=== PATIENT | male | born 1970 | race Two or more races ===

== ENCOUNTER 2021-06-27 17:42 | Emergency (ER) | payer OTHER ==
[~2021-06-27] VITALS: Ht 170.2 cm; Wt 95.3 kg
[2021-06-27 20:27] LABS: Basophils # (auto) 0.1 10 ^3/uL (0-0.2); Basophils % (auto) 1.2 % (0.0-2.0); Eosinophils # (auto) 0.1 10 ^3/uL (0-0.8); Eosinophils % (auto) 1.7 % (0.0-7.0); Hemoglobin 16.2 g/dL (13.5-17.5); Lymphocytes # (auto) 1.9 10 ^3/uL (0.4-5.4); Mean Corpuscular Hemoglobin 30.4 pg (28.0-32.0); Mean Corpuscular Volume 92.3 fL (80.0-100.0); Monocytes # (auto) 0.6 10 ^3/uL (0-1.3); Neutrophils # (auto) 3.7 10 ^3/uL (1.6-8.6); Neutrophils % (auto) 58.1 % (37.0-80.0); Nucleated Red Blood Cells % 0.2 %; Red Blood Cells 5.31 10^6/uL (4.5-5.90); White Blood Cell 6.3 10^3/uL (4.4-10.8)
[2021-06-27 20:52] LABS: Albumin 4.6 g/dL (3.4-5.0); Calcium 9.3 mg/dL (8.5-10.1); Potassium 4.2 mmol/L (3.5-5.1)
[2021-06-27 20:58] LABS: BUN/Creatinine Ratio 8.8; Bilirubin, Total 0.2 mg/dL (0.2-1.0); Total Protein 9.8 g/dL (6.4-8.2)
[2021-06-27 21:33] VITALS: BP 137/98
== END 2021-06-27 21:36 | disposition home or self-care (01) ==
LOC: ER 17:42
DX: R07.89 Other chest pain (principal); F17.210 Nicotine dependence, cigarettes, uncomplicated; F12.10 Cannabis abuse, uncomplicated
CPT/HCPCS: 36415; 71046; 80053; 84484; 85025; 93005

== ENCOUNTER 2021-10-28 10:39 | Inpatient (IN) | payer OTHER ==
[~2021-10-28] VITALS: Ht 170.2 cm; Wt 83.0 kg
[2021-10-28] MEDS ORDERED: ACETAMINOPHEN 325 MG TAB PO ONE (12:15)
[2021-10-28] MEDS ORDERED: ONDANSETRON HCL 4 MG/2 ML VIAL IV ONE (12:45)
[2021-10-28] MEDS ORDERED: fentaNYL CITRATE 100 MCG/2 ML VL IV ONE ×2 (12:45→15:45)
[2021-10-28 13:51] LABS: Basophils # (auto) 0 10 ^3/uL (0-0.2); Basophils % (auto) 0.2 % (0.0-2.0); Eosinophils # (auto) 0 10 ^3/uL (0-0.8); Hematocrit 34.8 % (41.0-53.0); Lymphocytes # (auto) 0.3 10 ^3/uL (0.4-5.4); Lymphocytes % (auto) 3.4 % (10.0-50.0); Mean Corpuscular Hemoglobin 30.4 pg (28.0-32.0); Mean Corpuscular Hgb Conc. 34.4 g/dL (32.0-36.0); Mean Corpuscular Volume 88.2 fL (80.0-100.0); Monocytes # (auto) 0.3 10 ^3/uL (0-1.3); Monocytes % (auto) 3.5 % (0.0-12.0); Neutrophils # (auto) 9.2 10 ^3/uL (1.6-8.6); Neutrophils % (auto) 92.9 % (37.0-80.0); Red Blood Cells 3.94 10^6/uL (4.5-5.90); Red Cell Distribution Width 15.4 % (11.8-14.3); White Blood Cell 9.9 10^3/uL (4.4-10.8)
[2021-10-28 14:28] LABS: Magnesium 1.6 mg/dL (1.6-2.6)
[2021-10-28 14:50] LABS: Calcium 8.7 mg/dL (8.5-10.1); Potassium 3.8 mmol/L (3.5-5.1)
[2021-10-28 14:55] LABS: Albumin 2.9 g/dL (3.4-5.0); BUN/Creatinine Ratio 9.1; Bilirubin, Total 1.2 mg/dL (0.2-1.0); Total Protein 7.2 g/dL (6.4-8.2)
[2021-10-28] MEDS ORDERED: PIPERACILLIN-TAZOB 3.375GM 100 ML IV ONE (15:30)
[2021-10-28] MEDS ORDERED: ACETAMINOPHEN IV 1000 MG/100ML (10MG/ML) IV PRN (15:30)
[2021-10-28] MEDS ORDERED: MORPHINE SULFATE INJECTION 2 MG/ML SYRG IV PRN (17:30)
[2021-10-28] MEDS ORDERED: NITROGLYCERIN 0.4 MG SL TAB SL PRN (17:30)
[2021-10-28] MEDS ORDERED: ONDANSETRON HCL 4 MG/2 ML VIAL IV PRN (17:30)
[2021-10-28] MEDS ORDERED: SODIUM CHLORIDE 0.9% 1,000 ML IV ONE (17:30)
[2021-10-28] MEDS ORDERED: NTG 0.1MG/HR TOPICAL PATCH TD ONE (18:00)
[2021-10-28 18:16] LABS: Cholesterol 105 mg/dL (< 200); HDL Cholesterol 37 mg/dL (40-59); LDL Cholesterol 53 mg/dL (< 100); Triglycerides 73 mg/dL (< 150)
[2021-10-28] MEDS: SODIUM CHLORIDE 0.9% 3,000 ML IV SCH (18:23)
[2021-10-28 20:25] VITALS: BP 121/75
[2021-10-28] MEDS: metroNIDAZOLE 500MG/100ML 100 ML IV SCH (21:25)
[2021-10-28] MEDS: MORPHINE SULFATE 4 MG/ML SYR/VIAL IV PRN (21:27)
[2021-10-28 21:41] VITALS: BP 121/75
[2021-10-29] MEDS: MORPHINE SULFATE 4 MG/ML SYR/VIAL IV PRN ×2 (02:03→06:15)
[2021-10-29 05:00] VITALS: BP 116/66
[2021-10-29 05:24] LABS: Basophils # (auto) 0 10 ^3/uL (0-0.2); Basophils % (auto) 0.2 % (0.0-2.0); Eosinophils # (auto) 0 10 ^3/uL (0-0.8); Eosinophils % (auto) 0.1 % (0.0-7.0); Hematocrit 32.1 % (41.0-53.0); Hemoglobin 10.9 g/dL (13.5-17.5); Lymphocytes # (auto) 0.7 10 ^3/uL (0.4-5.4); Lymphocytes % (auto) 6.7 % (10.0-50.0); Mean Corpuscular Hemoglobin 30.2 pg (28.0-32.0); Mean Corpuscular Volume 88.8 fL (80.0-100.0); Monocytes # (auto) 1.1 10 ^3/uL (0-1.3); Monocytes % (auto) 10.1 % (0.0-12.0); Neutrophils # (auto) 8.8 10 ^3/uL (1.6-8.6); Neutrophils % (auto) 82.9 % (37.0-80.0); Nucleated Red Blood Cells % 0.1 %; Red Blood Cells 3.61 10^6/uL (4.5-5.90); Red Cell Distribution Width 15.7 % (11.8-14.3); White Blood Cell 10.7 10^3/uL (4.4-10.8)
[2021-10-29 05:47] LABS: Potassium 4.4 mmol/L (3.5-5.1)
[2021-10-29 05:53] LABS: Albumin 2.5 g/dL (3.4-5.0); BUN/Creatinine Ratio 12.5; Calcium 8.7 mg/dL (8.5-10.1)
[2021-10-29 05:59] LABS: Bilirubin, Total 1.3 mg/dL (0.2-1.0); Total Protein 6.6 g/dL (6.4-8.2)
[2021-10-29] MEDS: metroNIDAZOLE 500MG/100ML 100 ML IV SCH ×3 (06:08→22:13)
[2021-10-29] MEDS: cefTRIAXone 1GM/50ML D5W 50 ML IV SCH (08:37)
[2021-10-29 08:39] VITALS: BP 107/72
[2021-10-29] MEDS ORDERED: HEPARIN SODIUM (PORCINE) 5000 UNITS/ML 1ML VIAL IV ONE (10:15)
[2021-10-29] MEDS ORDERED: GASTROGRAFIN 120 ML SOL ONE (10:24)
[2021-10-29 10:44] LABS: Basophils # (auto) 0 10 ^3/uL (0-0.2); Basophils % (auto) 0.2 % (0.0-2.0); Eosinophils # (auto) 0 10 ^3/uL (0-0.8); Eosinophils % (auto) 0.1 % (0.0-7.0); Hemoglobin 11.4 g/dL (13.5-17.5); Lymphocytes # (auto) 0.5 10 ^3/uL (0.4-5.4); Lymphocytes % (auto) 4.9 % (10.0-50.0); Mean Corpuscular Hemoglobin 30.5 pg (28.0-32.0); Mean Corpuscular Hgb Conc. 34.4 g/dL (32.0-36.0); Mean Corpuscular Volume 88.6 fL (80.0-100.0); Monocytes # (auto) 0.9 10 ^3/uL (0-1.3); Neutrophils # (auto) 8.5 10 ^3/uL (1.6-8.6); Neutrophils % (auto) 85.8 % (37.0-80.0); Red Blood Cells 3.73 10^6/uL (4.5-5.90); Red Cell Distribution Width 15.7 % (11.8-14.3); White Blood Cell 9.9 10^3/uL (4.4-10.8)
[2021-10-29] MEDS: SODIUM CHLORIDE 0.9% 3,000 ML IV SCH (11:00)
[2021-10-29 11:05] LABS: INR 1.23 (0.9-1.15); Partial Thromboplastin Time 29.4 sec (23.6-33.0)
[2021-10-29] MEDS ORDERED: KETOROLAC TROMETH 30 MG/ML 1ML VIAL IV ONE (11:30)
[2021-10-29 12:36] VITALS: BP 123/85
[2021-10-29] MEDS: HEPARIN DRIP/D5W 100UNITS/ML 250 ML IV SCH (15:00)
[2021-10-29 16:18] VITALS: BP 107/75
[2021-10-29] MEDS ORDERED: SODIUM CHLORIDE 0.9% 1,000 ML IV ONE (17:30)
[2021-10-29 22:00] VITALS: BP 106/78
[2021-10-29 23:44] LABS: INR 1.13 (0.9-1.15); Partial Thromboplastin Time 27.3 sec (23.6-33.0)
[2021-10-29] MEDS ORDERED: HEPARIN SODIUM (PORCINE) 5000 UNITS/ML 1ML VIAL IV STA (23:54)
[2021-10-30 05:00] VITALS: BP 116/75
[2021-10-30] MEDS: metroNIDAZOLE 500MG/100ML 100 ML IV SCH ×3 (05:34→22:11)
[2021-10-30 05:41] LABS: Basophils # (auto) 0 10 ^3/uL (0-0.2); Basophils % (auto) 0.2 % (0.0-2.0); Eosinophils # (auto) 0 10 ^3/uL (0-0.8); Eosinophils % (auto) 0.1 % (0.0-7.0); Hematocrit 29.7 % (41.0-53.0); Lymphocytes # (auto) 0.7 10 ^3/uL (0.4-5.4); Lymphocytes % (auto) 8.2 % (10.0-50.0); Mean Corpuscular Hemoglobin 29.8 pg (28.0-32.0); Mean Corpuscular Hgb Conc. 33.6 g/dL (32.0-36.0); Mean Corpuscular Volume 88.7 fL (80.0-100.0); Monocytes # (auto) 0.9 10 ^3/uL (0-1.3); Monocytes % (auto) 10.7 % (0.0-12.0); Neutrophils # (auto) 6.7 10 ^3/uL (1.6-8.6); Neutrophils % (auto) 80.8 % (37.0-80.0); Nucleated Red Blood Cells % 0.1 %; Red Blood Cells 3.35 10^6/uL (4.5-5.90); Red Cell Distribution Width 15.4 % (11.8-14.3); White Blood Cell 8.3 10^3/uL (4.4-10.8)
[2021-10-30 06:10] LABS: INR 1.14 (0.9-1.15); Partial Thromboplastin Time 49.6 sec (23.6-33.0)
[2021-10-30 09:00] VITALS: BP 109/71
[2021-10-30] MEDS: cefTRIAXone 1GM/50ML D5W 50 ML IV SCH (09:19)
[2021-10-30] MEDS: CARVEDILOL 3.125 MG TAB PO SCH ×2 (12:05→22:12)
[2021-10-30 12:23] LABS: INR 1.1 (0.9-1.15)
[2021-10-30] MEDS: HEPARIN DRIP/D5W 100UNITS/ML 250 ML IV SCH ×2 (12:46→13:39)
[2021-10-30 13:00] VITALS: BP 107/77
[2021-10-30 17:00] VITALS: BP 108/75
[2021-10-30] MEDS: SODIUM CHLORIDE 0.9% 3,000 ML IV SCH (17:42)
[2021-10-30 19:50] LABS: INR 1.1 (0.9-1.15); Partial Thromboplastin Time 38.1 sec (23.6-33.0)
[2021-10-30] MEDS: MORPHINE SULFATE 4 MG/ML SYR/VIAL IV PRN (20:34)
[2021-10-30 22:00] VITALS: BP 103/67
[2021-10-31] VITALS (7 sets, daily range): BP systolic 104–116; BP diastolic 71–80
[2021-10-31 03:29] LABS: INR 1.1 (0.9-1.15); Partial Thromboplastin Time 48.1 sec (23.6-33.0)
[2021-10-31] MEDS: HEPARIN DRIP/D5W 100UNITS/ML 250 ML IV SCH ×2 (03:56→15:05)
[2021-10-31] MEDS: metroNIDAZOLE 500MG/100ML 100 ML IV SCH ×2 (05:58→14:14)
[2021-10-31] MEDS: CARVEDILOL 3.125 MG TAB PO SCH (09:46)
[2021-10-31] MEDS: cefTRIAXone 1GM/50ML D5W 50 ML IV SCH (09:46)
[2021-10-31 10:12] LABS: INR 1.08 (0.9-1.15); Partial Thromboplastin Time 46.9 sec (23.6-33.0)
[2021-10-31] MEDS: SODIUM CHLORIDE 0.9% 3,000 ML IV SCH (13:45)
[2021-10-31 19:01] LABS: Hemoglobin 9.7 g/dL (13.5-17.5); Mean Corpuscular Hemoglobin 29.7 pg (28.0-32.0); Mean Corpuscular Hgb Conc. 33.4 g/dL (32.0-36.0); Mean Corpuscular Volume 88.9 fL (80.0-100.0); Red Blood Cells 3.26 10^6/uL (4.5-5.90); Red Cell Distribution Width 15.7 % (11.8-14.3); White Blood Cell 9.3 10^3/uL (4.4-10.8)
[2021-10-31 19:08] LABS: Basophils % (manual) 0 (0.0-2.0); Blast Cells 0; Metamyelocytes % 0; Myelocytes % 0; Promyelocytes % 0
[2021-10-31 19:17] LABS: Band Neutrophils % (manual) 0; Eosinophils % (manual) 2 (0-7); Lymphocytes % (manual) 19 (10.0-50.0); Monocytes % (manual) 8 (0-12); Reactive Lymphocytes 1
[2021-10-31 19:18] LABS: INR 1.07 (0.9-1.15); Partial Thromboplastin Time < 20.0 sec (23.6-33.0)
[2021-11-01] MEDS: metroNIDAZOLE 500MG/100ML 100 ML IV SCH ×2 (01:25→05:45)
[2021-11-01] MEDS: CARVEDILOL 3.125 MG TAB PO SCH ×3 (01:26→22:13)
[2021-11-01] MEDS: MORPHINE SULFATE 4 MG/ML SYR/VIAL IV PRN ×2 (01:27→22:12)
[2021-11-01 04:56] VITALS: BP 114/75
[2021-11-01 04:56] LABS: Basophils # (auto) 0 10 ^3/uL (0-0.2); Basophils % (auto) 0.5 % (0.0-2.0); Eosinophils # (auto) 0.1 10 ^3/uL (0-0.8); Eosinophils % (auto) 1.9 % (0.0-7.0); Hematocrit 27.9 % (41.0-53.0); Hemoglobin 9.4 g/dL (13.5-17.5); Lymphocytes # (auto) 0.7 10 ^3/uL (0.4-5.4); Lymphocytes % (auto) 13.2 % (10.0-50.0); Mean Corpuscular Hemoglobin 30.1 pg (28.0-32.0); Mean Corpuscular Hgb Conc. 33.6 g/dL (32.0-36.0); Mean Corpuscular Volume 89.4 fL (80.0-100.0); Monocytes # (auto) 0.7 10 ^3/uL (0-1.3); Monocytes % (auto) 13.5 % (0.0-12.0); Neutrophils # (auto) 3.5 10 ^3/uL (1.6-8.6); Neutrophils % (auto) 70.9 % (37.0-80.0); Nucleated Red Blood Cells % 0.1 %; Red Blood Cells 3.12 10^6/uL (4.5-5.90); Red Cell Distribution Width 15.6 % (11.8-14.3)
[2021-11-01 05:22] LABS: Calcium 8.5 mg/dL (8.5-10.1); Potassium 4.3 mmol/L (3.5-5.1)
[2021-11-01 05:26] LABS: Albumin 2.1 g/dL (3.4-5.0); BUN/Creatinine Ratio 20.8; Magnesium 2.1 mg/dL (1.6-2.6)
[2021-11-01 05:38] LABS: Bilirubin, Total 0.5 mg/dL (0.2-1.0); Total Protein 6.4 g/dL (6.4-8.2)
[2021-11-01 09:00] VITALS: BP 121/78
[2021-11-01] MEDS ORDERED: LIDOCAINE 5% TOPICAL PATCH TOP SCH (10:00)
[2021-11-01] MEDS: PANTOPRAZOLE 40 MG/10 ML VIAL INJ IV SCH (11:46)
[2021-11-01] MEDS: cefTRIAXone 1GM/50ML D5W 50 ML IV SCH (11:47)
[2021-11-01 13:00] VITALS: BP 110/56
[2021-11-01] MEDS ORDERED: SODIUM CHLORIDE 0.9% 3,000 ML IV SCH (13:45)
[2021-11-01 17:00] VITALS: BP 114/80
[2021-11-01 17:17] LABS: % Iron Saturation 7.8 % (20-55)
[2021-11-01 22:00] VITALS: BP 117/80
[2021-11-02 05:00] VITALS: BP 109/74
[2021-11-02 05:30] LABS: Hematocrit 28.4 % (41.0-53.0); Hemoglobin 9.7 g/dL (13.5-17.5)
[2021-11-02 09:00] VITALS: BP 128/80
[2021-11-02] MEDS: PANTOPRAZOLE 40 MG/10 ML VIAL INJ IV SCH (09:26)
[2021-11-02] MEDS: CARVEDILOL 3.125 MG TAB PO SCH (09:30)
[2021-11-02] MEDS ORDERED: FER325T PO (11:47)
[2021-11-02 13:00] VITALS: BP 115/76
[2021-11-02 17:00] VITALS: BP 122/83
[2021-11-02 17:23] VITALS: BP 122/83
[2021-11-02] MEDS ORDERED: LIDOCAINE 5% TOPICAL PATCH TOP SCH (22:00)
== END 2021-11-02 18:45 | disposition home health service (06) | DRG 720 ==
LOC: ER 10:39 → TELE-WESTW 17:40
PROVIDERS: ADMIT Registered Nurse; ATTEND Internal Medicine
PROC: 0D9670Z Drainage of Stomach with Drainage Device, Via Natural or Artificial Opening (ICD-10-PCS; principal; 2021-10-28)
DX: A41.9 Sepsis, unspecified organism (principal); I21.4 Non-ST elevation (NSTEMI) myocardial infarction; K56.600 Partial intestinal obstruction, unspecified as to cause; E46 Unspecified protein-calorie malnutrition; N17.9 Acute kidney failure, unspecified; R18.8 Other ascites; E88.09 Other disorders of plasma-protein metabolism, not elsewhere classified; D50.9 Iron deficiency anemia, unspecified; E66.9 Obesity, unspecified; F17.210 Nicotine dependence, cigarettes, uncomplicated; K40.20 Bilateral inguinal hernia, without obstruction or gangrene, not specified as recurrent; Z83.3 Family history of diabetes mellitus; Z68.28 Body mass index [BMI] 28.0-28.9, adult
CPT/HCPCS: 36415; 71045; 74176; 74250; 80053; 80061; 82270; 83036; 83540; 83550; 83605; 83615; 83690; 83735; 83880; 84443; 84484; 85007; 85014; 85018; 85025; 85027; 85610; 85730; 87040; 93005; 93306; 96361; 96365; 96366; 96375; 96376; 97163; 99291; C9113; G0378; J0131; J0696; J1885; J2405; J2543; J3490

== ENCOUNTER 2021-11-05 05:00 | Inpatient (IN) | payer OTHER ==
[~2021-11-05] VITALS: Ht 177.8 cm; Wt 80.4 kg
[2021-11-05] VITALS (36 sets, daily range): BP systolic 82–152; BP diastolic 43–94
[~2021-11-05 05:00] MED LIST: FER325T PO
[2021-11-05] MEDS ORDERED: SODIUM CHLORIDE 0.9% 1,000 ML IV ONE ×2 (06:30→22:15)
[2021-11-05] MEDS ORDERED: MORPHINE SULFATE 4 MG/ML SYR/VIAL IV ONE ×2 (06:30)
[2021-11-05] MEDS ORDERED: ONDANSETRON HCL 4 MG/2 ML VIAL IV ONE ×2 (06:30)
[2021-11-05 06:58] LABS: Albumin 2.5 g/dL (3.4-5.0); Calcium 8.4 mg/dL (8.5-10.1); Potassium 3.7 mmol/L (3.5-5.1)
[2021-11-05 07:01] LABS: Bilirubin, Total 0.5 mg/dL (0.2-1.0); Total Protein 6.7 g/dL (6.4-8.2)
[2021-11-05] MEDS ORDERED: IOHEXOL 300 MG/ML 100ML BOTTLE IJ ONE (07:17)
[2021-11-05] MEDS ORDERED: metroNIDAZOLE 500MG/100ML 100 ML IV ONE (08:45)
[2021-11-05] MEDS ORDERED: cefTRIAXone 1GM/50ML D5W 50 ML IV ONE (08:45)
[2021-11-05] MEDS ORDERED: SODIUM CHLORIDE 0.9% 2,000 ML IV ONE (09:30)
[2021-11-05 09:36] LABS: INR 1.2 (0.9-1.15)
[2021-11-05 09:45] LABS: Basophils # (auto) 0 10 ^3/uL (0-0.2); Basophils % (auto) 0.1 % (0.0-2.0); Eosinophils # (auto) 0 10 ^3/uL (0-0.8); Hematocrit 35.5 % (41.0-53.0); Hemoglobin 11.6 g/dL (13.5-17.5); Lymphocytes # (auto) 0.6 10 ^3/uL (0.4-5.4); Mean Corpuscular Hemoglobin 28.9 pg (28.0-32.0); Mean Corpuscular Hgb Conc. 32.7 g/dL (32.0-36.0); Mean Corpuscular Volume 88.2 fL (80.0-100.0); Monocytes # (auto) 1.1 10 ^3/uL (0-1.3); Monocytes % (auto) 6.5 % (0.0-12.0); Neutrophils # (auto) 14.5 10 ^3/uL (1.6-8.6); Neutrophils % (auto) 89.4 % (37.0-80.0); Red Blood Cells 4.03 10^6/uL (4.5-5.90); Red Cell Distribution Width 16.5 % (11.8-14.3); White Blood Cell 16.2 10^3/uL (4.4-10.8)
[2021-11-05] MEDS ORDERED: SUCCINYLCHOLINE CHLORIDE 20 MG/ML 10ML VIAL IV ONE (10:13)
[2021-11-05] MEDS ORDERED: MIDAZOLAM HCL 2MG/2ML 2ml VIAL (1mg/ml) ONE ×2 (10:14→13:39)
[2021-11-05] MEDS ORDERED: fentaNYL CITRATE 100 MCG/2 ML VL ONE ×3 (10:14→13:54)
[2021-11-05] MEDS ORDERED: ROCURONIUM 10MG/ML 10ML VIAL IV ONE (10:20)
[2021-11-05] MEDS ORDERED: ETOMIDATE (2MG/ML) 20ML VIAL IV ONE (11:57)
[2021-11-05] MEDS ORDERED: HYDROCORTISONE SOD SUCC 100 MG/2ML INJ VIAL ONE (11:57)
[2021-11-05] MEDS ORDERED: ALBUMIN 5% 500 ML IV ONE (12:04)
[2021-11-05] MEDS ORDERED: ALBUMIN 5% 250 ML IV ONE (12:28)
[2021-11-05] MEDS ORDERED: ceFAZolin 1GM VL ONE (13:38)
[2021-11-05] MEDS ORDERED: PROPOFOL 100 ML IV ONE (14:15)
[2021-11-05] MEDS ORDERED: HYDROmorphone HCL 2 MG/ML VL/or syr IV PRN ×2 (14:45)
[2021-11-05] MEDS: PANTOPRAZOLE 40 MG/10 ML VIAL INJ IV SCH (16:00)
[2021-11-05] MEDS: LACTATED RINGER'S 1,000 ML IV SCH ×2 (16:00→17:57)
[2021-11-05] MEDS: metroNIDAZOLE 500MG/100ML 100 ML IV SCH ×2 (16:00→21:39)
[2021-11-05] MEDS: fentaNYL Drip 2500mCg/250mlNS 250 ML IV SCH (17:30)
[2021-11-05] MEDS: PROPOFOL 100 ML IV SCH (17:56)
[2021-11-05] MEDS: MIDAZOLAM DRIP 50 mg/50mL 50 ML IV SCH (19:30)
[2021-11-05] MEDS: NOREPINEPHRINE 8 MG/250ML KIT 250 ML IV SCH (20:26)
[2021-11-06] VITALS (102 sets, daily range): BP systolic 77–124; BP diastolic 43–103
[2021-11-06] MEDS: PROPOFOL 100 ML IV SCH ×5 (00:40→22:53)
[2021-11-06] MEDS: LACTATED RINGER'S 1,000 ML IV SCH ×2 (03:49→14:04)
[2021-11-06 03:53] LABS: Basophils # (auto) 0 10 ^3/uL (0-0.2); Basophils % (auto) 0.1 % (0.0-2.0); Eosinophils # (auto) 0 10 ^3/uL (0-0.8); Hemoglobin 9.2 g/dL (13.5-17.5); Lymphocytes # (auto) 1.4 10 ^3/uL (0.4-5.4); Lymphocytes % (auto) 5.5 % (10.0-50.0); Mean Corpuscular Hemoglobin 28.3 pg (28.0-32.0); Mean Corpuscular Volume 85.6 fL (80.0-100.0); Monocytes # (auto) 2.5 10 ^3/uL (0-1.3); Monocytes % (auto) 9.7 % (0.0-12.0); Neutrophils # (auto) 22.1 10 ^3/uL (1.6-8.6); Neutrophils % (auto) 84.7 % (37.0-80.0); Red Blood Cells 3.27 10^6/uL (4.5-5.90); Red Cell Distribution Width 19.7 % (11.8-14.3); White Blood Cell 26.1 10^3/uL (4.4-10.8)
[2021-11-06 04:09] LABS: Albumin 2.7 g/dL (3.4-5.0); BUN/Creatinine Ratio 12.8; Calcium 7.3 mg/dL (8.5-10.1); Potassium 4.3 mmol/L (3.5-5.1)
[2021-11-06 04:12] LABS: Bilirubin, Total 1.6 mg/dL (0.2-1.0); Total Protein 5.2 g/dL (6.4-8.2)
[2021-11-06] MEDS: NOREPINEPHRINE 8 MG/250ML KIT 250 ML IV SCH (05:04)
[2021-11-06] MEDS: metroNIDAZOLE 500MG/100ML 100 ML IV SCH ×3 (05:52→21:41)
[2021-11-06] MEDS: fentaNYL Drip 2500mCg/250mlNS 250 ML IV SCH ×2 (06:55→21:39)
[2021-11-06] MEDS: cefTRIAXone 1GM/50ML D5W 50 ML IV SCH (08:52)
[2021-11-06] MEDS ORDERED: SODIUM CHLORIDE 0.9% 500 ML IV ONE (10:30)
[2021-11-06] MEDS: PANTOPRAZOLE 40 MG/10 ML VIAL INJ IV SCH (10:30)
[2021-11-06] MEDS ORDERED: ALBUMIN 25% 100 ML IV ONE ×2 (12:00)
[2021-11-06] MEDS: MIDAZOLAM DRIP 50 mg/50mL 50 ML IV SCH (19:30)
[2021-11-07] VITALS (99 sets, daily range): BP systolic 91–126; BP diastolic 53–80
[2021-11-07] MEDS: LACTATED RINGER'S 1,000 ML IV SCH (00:16)
[2021-11-07] MEDS: NOREPINEPHRINE 8 MG/250ML KIT 250 ML IV SCH (01:53)
[2021-11-07] MEDS: metroNIDAZOLE 500MG/100ML 100 ML IV SCH ×3 (06:10→21:45)
[2021-11-07] MEDS: PROPOFOL 100 ML IV SCH (06:12)
[2021-11-07 06:47] LABS: Albumin 2.1 g/dL (3.4-5.0); Calcium 7.6 mg/dL (8.5-10.1); Potassium 3.8 mmol/L (3.5-5.1)
[2021-11-07 06:50] LABS: BUN/Creatinine Ratio 11.5; Bilirubin, Total 1.1 mg/dL (0.2-1.0); Total Protein 4.8 g/dL (6.4-8.2)
[2021-11-07] MEDS: cefTRIAXone 1GM/50ML D5W 50 ML IV SCH (09:55)
[2021-11-07] MEDS: PANTOPRAZOLE 40 MG/10 ML VIAL INJ IV SCH (09:55)
[2021-11-07] MEDS ORDERED: TPN PER PHARMACY 0 ML IV SCH (10:30)
[2021-11-07 10:42] LABS: Magnesium 1.4 mg/dL (1.6-2.6)
[2021-11-07 10:49] LABS: Basophils # (auto) 0.1 10 ^3/uL (0-0.2); Eosinophils # (auto) 0.1 10 ^3/uL (0-0.8); Hemoglobin 7.6 g/dL (13.5-17.5); Nucleated Red Blood Cells % 0.1 %; Red Blood Cells 2.71 10^6/uL (4.5-5.90)
[2021-11-07 10:51] LABS: Basophils % (auto) 0.6 % (0.0-2.0); Eosinophils % (auto) 0.6 % (0.0-7.0); Hematocrit 23.3 % (41.0-53.0); Mean Corpuscular Hemoglobin 28.2 pg (28.0-32.0); Mean Corpuscular Hgb Conc. 32.8 g/dL (32.0-36.0); Monocytes # (auto) 1.4 10 ^3/uL (0-1.3); Monocytes % (auto) 6.9 % (0.0-12.0); Neutrophils # (auto) 17.3 10 ^3/uL (1.6-8.6); Neutrophils % (auto) 86.9 % (37.0-80.0); White Blood Cell 19.9 10^3/uL (4.4-10.8)
[2021-11-07] MEDS ORDERED: SODIUM PHOSPHATES 40 MEQ in D5W 5% 250 ML IV ONE (11:45)
[2021-11-07] MEDS: MAGNESIUM SULFATE 1GM/100ML 100 ML IV SCH ×3 (12:08→16:53)
[2021-11-07] MEDS: SOD CHL 0.45% 1,000 ML IV SCH ×2 (13:48→18:30)
[2021-11-07] MEDS: ONDANSETRON HCL 4 MG/2 ML VIAL IV PRN (16:56)
[2021-11-07] MEDS: MIDAZOLAM DRIP 50 mg/50mL 50 ML IV SCH (19:30)
[2021-11-07] MEDS ORDERED: TPN PER PHARMACY IV NR ×6 (20:00)
[2021-11-07] MEDS: ACCU-CHEK COMFORT CURVE STRIP VI SCH (23:52)
[2021-11-07] MEDS: InsuLIN REG 1unit/0.01ml Soln (100units/ml) SC SCH (23:52)
[2021-11-08] VITALS (40 sets, daily range): BP systolic 98–132; BP diastolic 64–82
[2021-11-08] MEDS ORDERED: DEXTROSE (50%) 50ML SYRG IV SCH
[2021-11-08] MEDS: ONDANSETRON HCL 4 MG/2 ML VIAL IV PRN ×2 (00:51→15:42)
[2021-11-08] MEDS: SOD CHL 0.45% 1,000 ML IV SCH ×2 (02:30→09:19)
[2021-11-08 04:48] LABS: Potassium 3.4 mmol/L (3.5-5.1)
[2021-11-08 04:56] LABS: BUN/Creatinine Ratio 12.9; Bilirubin, Total 1.2 mg/dL (0.2-1.0); Calcium 7.8 mg/dL (8.5-10.1); Magnesium 2.2 mg/dL (1.6-2.6); Phosphorus 2.1 mg/dL (2.5-4.90); Total Protein 5.2 g/dL (6.4-8.2)
[2021-11-08] MEDS: metroNIDAZOLE 500MG/100ML 100 ML IV SCH ×3 (05:31→21:49)
[2021-11-08] MEDS: InsuLIN REG 1unit/0.01ml Soln (100units/ml) SC SCH ×4 (05:31→23:51)
[2021-11-08] MEDS: ACCU-CHEK COMFORT CURVE STRIP VI SCH ×4 (05:46→23:50)
[2021-11-08 08:26] LABS: Eosinophils # (auto) 0.1 10 ^3/uL (0-0.8); Mean Corpuscular Hemoglobin 27.9 pg (28.0-32.0); Mean Corpuscular Hgb Conc. 32.7 g/dL (32.0-36.0); Mean Corpuscular Volume 85.2 fL (80.0-100.0); Nucleated Red Blood Cells % 0.1 %
[2021-11-08 08:29] LABS: Basophils # (auto) 0 10 ^3/uL (0-0.2); Basophils % (auto) 0.3 % (0.0-2.0); Hematocrit 20.9 % (41.0-53.0); Lymphocytes # (auto) 0.7 10 ^3/uL (0.4-5.4); Lymphocytes % (auto) 6.1 % (10.0-50.0); Monocytes # (auto) 0.9 10 ^3/uL (0-1.3); Monocytes % (auto) 7.7 % (0.0-12.0); Neutrophils # (auto) 10.2 10 ^3/uL (1.6-8.6); Neutrophils % (auto) 84.9 % (37.0-80.0); Red Blood Cells 2.45 10^6/uL (4.5-5.90); Red Cell Distribution Width 19.1 % (11.8-14.3)
[2021-11-08 08:33] LABS: Hemoglobin 6.8 g/dL (13.5-17.5)
[2021-11-08] MEDS: PANTOPRAZOLE 40 MG/10 ML VIAL INJ IV SCH ×2 (09:18→21:49)
[2021-11-08] MEDS: cefTRIAXone 1GM/50ML D5W 50 ML IV SCH (09:18)
[2021-11-08] MEDS ORDERED: POTASSIUM PHOSPHATE 44 MEQ in D5W 5% 250 ML IV ONE (10:00)
[2021-11-08] MEDS: MORPHINE SULFATE INJECTION 2 MG/ML SYRG IV PRN ×2 (11:31→18:08)
[2021-11-08] MEDS ORDERED: FUROSEMIDE 40 MG/4 ML VIAL IV ONE (12:30)
[2021-11-08] MEDS ORDERED: PHENYLEPHRINE INJ 80 MG in SODIUM CHL 0.9% 242 ML IV SCH (14:30)
[2021-11-08 15:48] LABS: Hemoglobin 8.3 g/dL (13.5-17.5)
[2021-11-08] MEDS ORDERED: TPN PER PHARMACY IV NR ×7 (20:00)
[2021-11-09] VITALS (15 sets, daily range): BP systolic 106–128; BP diastolic 61–80
[2021-11-09] MEDS: MORPHINE SULFATE INJECTION 2 MG/ML SYRG IV PRN ×5 (03:30→21:42)
[2021-11-09] MEDS: ONDANSETRON HCL 4 MG/2 ML VIAL IV PRN ×3 (03:30→21:43)
[2021-11-09] MEDS: InsuLIN REG 1unit/0.01ml Soln (100units/ml) SC SCH ×3 (04:47→17:29)
[2021-11-09] MEDS: metroNIDAZOLE 500MG/100ML 100 ML IV SCH ×3 (04:47→21:43)
[2021-11-09] MEDS: ACCU-CHEK COMFORT CURVE STRIP VI SCH ×3 (04:47→17:29)
[2021-11-09 05:14] LABS: Basophils # (auto) 0 10 ^3/uL (0-0.2); Lymphocytes # (auto) 0.7 10 ^3/uL (0.4-5.4)
[2021-11-09 05:15] LABS: Basophils % (auto) 0.2 % (0.0-2.0); Eosinophils # (auto) 0.1 10 ^3/uL (0-0.8); Eosinophils % (auto) 1.3 % (0.0-7.0); Hematocrit 23.8 % (41.0-53.0); Hemoglobin 8.2 g/dL (13.5-17.5); Lymphocytes % (auto) 6.8 % (10.0-50.0); Mean Corpuscular Hemoglobin 28.9 pg (28.0-32.0); Mean Corpuscular Hgb Conc. 34.4 g/dL (32.0-36.0); Mean Corpuscular Volume 83.9 fL (80.0-100.0); Monocytes % (auto) 10.1 % (0.0-12.0); Neutrophils # (auto) 8.1 10 ^3/uL (1.6-8.6); Neutrophils % (auto) 81.6 % (37.0-80.0); Nucleated Red Blood Cells % 0.1 %; Red Blood Cells 2.84 10^6/uL (4.5-5.90); Red Cell Distribution Width 17.9 % (11.8-14.3); White Blood Cell 9.9 10^3/uL (4.4-10.8)
[2021-11-09 05:41] LABS: Calcium 7.7 mg/dL (8.5-10.1); Magnesium 1.8 mg/dL (1.6-2.6); Potassium 3.1 mmol/L (3.5-5.1)
[2021-11-09 05:43] LABS: BUN/Creatinine Ratio 12.8
[2021-11-09 05:45] LABS: Phosphorus 1.8 mg/dL (2.5-4.90); Total Protein 5.5 g/dL (6.4-8.2)
[2021-11-09 07:55] LABS: % Iron Saturation 9.7 % (20-55)
[2021-11-09] MEDS ORDERED: POTASSIUM PHOSPHATE 44 MEQ in D5W 5% 250 ML IV ONE (08:30)
[2021-11-09] MEDS: PANTOPRAZOLE 40 MG/10 ML VIAL INJ IV SCH ×2 (09:20→22:09)
[2021-11-09] MEDS: cefTRIAXone 1GM/50ML D5W 50 ML IV SCH (09:20)
[2021-11-09] MEDS ORDERED: FUROSEMIDE 20 MG/2 ML VIAL IV ONE (10:15)
[2021-11-09] MEDS ORDERED: HEPARIN SODIUM (PORCINE) 5000 UNITS/ML 1ML VIAL IV ONE (13:30)
[2021-11-09 14:30] LABS: INR 1.08 (0.9-1.15); Partial Thromboplastin Time 26.2 sec (23.6-33.0)
[2021-11-09] MEDS: HEPARIN DRIP/D5W 100UNITS/ML 250 ML IV SCH (14:45)
[2021-11-09] MEDS ORDERED: TPN PER PHARMACY IV NR ×8 (20:00)
[2021-11-09 21:56] LABS: INR 1.11 (0.9-1.15); Partial Thromboplastin Time 35.6 sec (23.6-33.0)
[2021-11-09 22:13] LABS: Basophils # (auto) 0 10 ^3/uL (0-0.2); Basophils % (auto) 0.5 % (0.0-2.0); Eosinophils # (auto) 0.2 10 ^3/uL (0-0.8); Eosinophils % (auto) 2.1 % (0.0-7.0); Hemoglobin 7.9 g/dL (13.5-17.5); Monocytes # (auto) 1.2 10 ^3/uL (0-1.3); Neutrophils # (auto) 6.4 10 ^3/uL (1.6-8.6)
[2021-11-09 22:14] LABS: Hematocrit 23.1 % (41.0-53.0); Lymphocytes # (auto) 0.9 10 ^3/uL (0.4-5.4); Lymphocytes % (auto) 10.8 % (10.0-50.0); Mean Corpuscular Hemoglobin 28.4 pg (28.0-32.0); Mean Corpuscular Hgb Conc. 34.2 g/dL (32.0-36.0); Monocytes % (auto) 13.5 % (0.0-12.0); Neutrophils % (auto) 73.1 % (37.0-80.0); Nucleated Red Blood Cells % 0.2 %; Red Blood Cells 2.78 10^6/uL (4.5-5.90); Red Cell Distribution Width 18.3 % (11.8-14.3); White Blood Cell 8.7 10^3/uL (4.4-10.8)
[2021-11-10] VITALS (21 sets, daily range): BP systolic 98–130; BP diastolic 62–82
[2021-11-10] MEDS: HEPARIN DRIP/D5W 100UNITS/ML 250 ML IV SCH ×4 (00:49→20:17)
[2021-11-10] MEDS: ACCU-CHEK COMFORT CURVE STRIP VI SCH ×4 (00:49→18:20)
[2021-11-10] MEDS: InsuLIN REG 1unit/0.01ml Soln (100units/ml) SC SCH ×4 (01:02→18:00)
[2021-11-10] MEDS: ONDANSETRON HCL 4 MG/2 ML VIAL IV PRN ×5 (01:47→20:44)
[2021-11-10] MEDS: MORPHINE SULFATE INJECTION 2 MG/ML SYRG IV PRN ×5 (01:48→20:44)
[2021-11-10 05:16] LABS: Basophils # (auto) 0 10 ^3/uL (0-0.2); Eosinophils # (auto) 0.2 10 ^3/uL (0-0.8); Eosinophils % (auto) 2.2 % (0.0-7.0); Neutrophils # (auto) 6.5 10 ^3/uL (1.6-8.6); Nucleated Red Blood Cells % 0.1 %
[2021-11-10 05:21] LABS: Basophils % (auto) 0.4 % (0.0-2.0); Hematocrit 22.6 % (41.0-53.0); Hemoglobin 7.9 g/dL (13.5-17.5); Lymphocytes % (auto) 11.4 % (10.0-50.0); Mean Corpuscular Hemoglobin 29.3 pg (28.0-32.0); Mean Corpuscular Hgb Conc. 34.7 g/dL (32.0-36.0); Mean Corpuscular Volume 84.5 fL (80.0-100.0); Monocytes # (auto) 1.3 10 ^3/uL (0-1.3); Red Blood Cells 2.68 10^6/uL (4.5-5.90); Red Cell Distribution Width 18.4 % (11.8-14.3)
[2021-11-10 05:24] LABS: INR 1.1 (0.9-1.15); Partial Thromboplastin Time 40.6 sec (23.6-33.0)
[2021-11-10 05:27] LABS: Albumin 1.9 g/dL (3.4-5.0); Calcium 7.7 mg/dL (8.5-10.1); Magnesium 2.2 mg/dL (1.6-2.6); Potassium 3.1 mmol/L (3.5-5.1)
[2021-11-10 05:31] LABS: BUN/Creatinine Ratio 18.3; Bilirubin, Total 0.9 mg/dL (0.2-1.0); Phosphorus 2.4 mg/dL (2.5-4.90); Total Protein 5.5 g/dL (6.4-8.2)
[2021-11-10] MEDS: metroNIDAZOLE 500MG/100ML 100 ML IV SCH ×3 (06:07→21:30)
[2021-11-10] MEDS: cefTRIAXone 1GM/50ML D5W 50 ML IV SCH (09:22)
[2021-11-10] MEDS: PANTOPRAZOLE 40 MG/10 ML VIAL INJ IV SCH ×2 (09:22→21:30)
[2021-11-10] MEDS ORDERED: POTASSIUM PHOSPHATE 44 MEQ in D5W 5% 250 ML IV ONE (09:45)
[2021-11-10] MEDS ORDERED: SODIUM FERR GLUC 62.5MG/5ML 125 MG in SODIUM CHL 0.9% 100 ML IV ONE (13:45)
[2021-11-10 16:48] LABS: INR 1.1 (0.9-1.15); Partial Thromboplastin Time 53.5 sec (23.6-33.0)
[2021-11-10] MEDS ORDERED: TPN PER PHARMACY IV NR ×8 (20:00)
[2021-11-10 22:36] LABS: INR 1.17 (0.9-1.15); Partial Thromboplastin Time 47.8 sec (23.6-33.0)
[2021-11-11] VITALS (17 sets, daily range): BP systolic 92–124; BP diastolic 54–81
[2021-11-11] MEDS: InsuLIN REG 1unit/0.01ml Soln (100units/ml) SC SCH ×4 (00:30→18:00)
[2021-11-11] MEDS: ACCU-CHEK COMFORT CURVE STRIP VI SCH ×4 (00:44→18:00)
[2021-11-11] MEDS: ONDANSETRON HCL 4 MG/2 ML VIAL IV PRN ×4 (03:32→21:29)
[2021-11-11] MEDS: MORPHINE SULFATE INJECTION 2 MG/ML SYRG IV PRN ×3 (03:32→21:29)
[2021-11-11 05:15] LABS: Albumin 1.9 g/dL (3.4-5.0); Calcium 7.6 mg/dL (8.5-10.1); Magnesium 2.2 mg/dL (1.6-2.6); Potassium 3.5 mmol/L (3.5-5.1)
[2021-11-11 05:19] LABS: BUN/Creatinine Ratio 19.5; Bilirubin, Total 0.7 mg/dL (0.2-1.0); INR 1.17 (0.9-1.15); Phosphorus 2.5 mg/dL (2.5-4.90); Total Protein 5.6 g/dL (6.4-8.2)
[2021-11-11 05:24] LABS: Partial Thromboplastin Time 77.9 sec (23.6-33.0)
[2021-11-11] MEDS: metroNIDAZOLE 500MG/100ML 100 ML IV SCH ×3 (05:39→21:27)
[2021-11-11] MEDS: HEPARIN DRIP/D5W 100UNITS/ML 250 ML IV SCH (06:32)
[2021-11-11 08:49] LABS: Basophils # (auto) 0 10 ^3/uL (0-0.2); Hemoglobin 7.6 g/dL (13.5-17.5); Lymphocytes # (auto) 0.8 10 ^3/uL (0.4-5.4); Neutrophils # (auto) 6.7 10 ^3/uL (1.6-8.6)
[2021-11-11 08:50] LABS: Basophils % (auto) 0.5 % (0.0-2.0); Eosinophils # (auto) 0.3 10 ^3/uL (0-0.8); Eosinophils % (auto) 2.9 % (0.0-7.0); Hematocrit 22.3 % (41.0-53.0); Lymphocytes % (auto) 9.2 % (10.0-50.0); Mean Corpuscular Hemoglobin 28.8 pg (28.0-32.0); Mean Corpuscular Hgb Conc. 33.9 g/dL (32.0-36.0); Mean Corpuscular Volume 84.7 fL (80.0-100.0); Monocytes % (auto) 11.7 % (0.0-12.0); Neutrophils % (auto) 75.7 % (37.0-80.0); Nucleated Red Blood Cells % 0.2 %; Red Blood Cells 2.63 10^6/uL (4.5-5.90); Red Cell Distribution Width 18.2 % (11.8-14.3); White Blood Cell 8.8 10^3/uL (4.4-10.8)
[2021-11-11] MEDS: cefTRIAXone 1GM/50ML D5W 50 ML IV SCH (09:17)
[2021-11-11] MEDS: PANTOPRAZOLE 40 MG/10 ML VIAL INJ IV SCH ×2 (09:55→21:27)
[2021-11-11 11:25] LABS: INR 1.16 (0.9-1.15); Partial Thromboplastin Time 49.3 sec (23.6-33.0)
[2021-11-11] MEDS ORDERED: levoFLOXacin 750MG 150 ML IV ONE (12:15)
[2021-11-11] MEDS: SODIUM FERR GLUC 62.5MG/5ML 125 MG in SODIUM CHL 0.9% 100 ML IV SCH (12:26)
[2021-11-11] MEDS ORDERED: POTASSIUM PHOSPHATE 22 MEQ in SODIUM CHL 0.9% 100 ML IV ONE (12:30)
[2021-11-11] MEDS ORDERED: ENOXAPARIN SOD 100 MG/1 ML SYRINGE SC ONE ×2 (13:00→15:00)
[2021-11-11] MEDS ORDERED: IOHEXOL 350 MG/ML 100ML IJ ONE (15:44)
[2021-11-11] MEDS ORDERED: TPN PER PHARMACY IV NR ×9 (20:00)
[2021-11-11] MEDS: ENOXAPARIN SOD 100 MG/1 ML SYRINGE SC SCH (21:27)
[2021-11-12] VITALS (12 sets, daily range): BP systolic 96–110; BP diastolic 60–76
[2021-11-12] MEDS: MORPHINE SULFATE INJECTION 2 MG/ML SYRG IV PRN ×3 (05:53→14:59)
[2021-11-12] MEDS: ONDANSETRON HCL 4 MG/2 ML VIAL IV PRN (05:53)
[2021-11-12] MEDS: InsuLIN REG 1unit/0.01ml Soln (100units/ml) SC SCH ×3 (06:00→12:00)
[2021-11-12] MEDS: ACCU-CHEK COMFORT CURVE STRIP VI SCH ×3 (06:17→12:17)
[2021-11-12] MEDS: metroNIDAZOLE 500MG/100ML 100 ML IV SCH ×2 (06:22→13:44)
[2021-11-12 06:29] LABS: Basophils # (auto) 0.1 10 ^3/uL (0-0.2); Basophils % (auto) 1.2 % (0.0-2.0); Eosinophils # (auto) 0.2 10 ^3/uL (0-0.8); Eosinophils % (auto) 2.4 % (0.0-7.0); Hematocrit 23.5 % (41.0-53.0); Hemoglobin 7.8 g/dL (13.5-17.5); Lymphocytes # (auto) 0.9 10 ^3/uL (0.4-5.4); Lymphocytes % (auto) 9.4 % (10.0-50.0); Mean Corpuscular Hemoglobin 28.1 pg (28.0-32.0); Mean Corpuscular Hgb Conc. 33.3 g/dL (32.0-36.0); Mean Corpuscular Volume 84.4 fL (80.0-100.0); Monocytes # (auto) 1.3 10 ^3/uL (0-1.3); Monocytes % (auto) 14.2 % (0.0-12.0); Neutrophils # (auto) 6.6 10 ^3/uL (1.6-8.6); Neutrophils % (auto) 72.8 % (37.0-80.0); Nucleated Red Blood Cells % 0.1 %; Red Blood Cells 2.79 10^6/uL (4.5-5.90); Red Cell Distribution Width 18.9 % (11.8-14.3); White Blood Cell 9.1 10^3/uL (4.4-10.8)
[2021-11-12] MEDS: PANTOPRAZOLE 40 MG/10 ML VIAL INJ IV SCH (09:30)
[2021-11-12] MEDS: ENOXAPARIN SOD 100 MG/1 ML SYRINGE SC SCH ×2 (09:31→22:00)
[2021-11-12] MEDS: levoFLOXacin 750MG 150 ML IV SCH (09:32)
[2021-11-12 09:56] LABS: Magnesium 2.6 mg/dL (1.6-2.6); Potassium 4.2 mmol/L (3.5-5.1)
[2021-11-12 10:00] LABS: BUN/Creatinine Ratio 21.4; Bilirubin, Total 0.6 mg/dL (0.2-1.0); Phosphorus 2.8 mg/dL (2.5-4.90); Total Protein 5.7 g/dL (6.4-8.2)
[2021-11-12] MEDS: SODIUM FERR GLUC 62.5MG/5ML 125 MG in SODIUM CHL 0.9% 100 ML IV SCH (12:17)
[2021-11-12] MEDS ORDERED: IOHEXOL 350 MG/ML 100ML IJ ONE (13:07)
[2021-11-12 16:23] LABS: Hematocrit 23.3 % (41.0-53.0); Hemoglobin 7.8 g/dL (13.5-17.5)
[2021-11-12 16:55] LABS: INR 1.25 (0.9-1.15)
[2021-11-12] MEDS ORDERED: SODIUM CHLORIDE IV NR ×8 (20:00)
[2021-11-12] MEDS ORDERED: SODIUM PHOSPHATES IV NR ×8 (20:00)
[2021-11-12] MEDS ORDERED: FAT EMULSION IV NR ×8 (20:00)
[2021-11-12] MEDS ORDERED: [UNRECOGNIZED DRUG - OTHER] IV NR ×8 (20:00)
[2021-11-12 23:19] LABS: Hematocrit 25.8 % (41.0-53.0); Hemoglobin 8.7 g/dL (13.5-17.5)
[2021-11-13] MEDS: MORPHINE SULFATE INJECTION 2 MG/ML SYRG IV PRN (00:14)
[2021-11-13] MEDS: PANTOPRAZOLE 40 MG/10 ML VIAL INJ IV SCH ×2 (01:50→09:39)
[2021-11-13] MEDS: metroNIDAZOLE 500MG/100ML 100 ML IV SCH ×3 (01:51→15:15)
[2021-11-13] MEDS: ACCU-CHEK COMFORT CURVE STRIP VI SCH ×5 (02:06→18:08)
[2021-11-13 03:15] LABS: INR 1.2 (0.9-1.15)
[2021-11-13 05:19] VITALS: BP 107/73
[2021-11-13] MEDS: InsuLIN REG 1unit/0.01ml Soln (100units/ml) SC SCH ×4 (06:44→18:00)
[2021-11-13 07:15] LABS: Eosinophils # (auto) 0.2 10 ^3/uL (0-0.8); Hematocrit 23.7 % (41.0-53.0); Lymphocytes # (auto) 0.7 10 ^3/uL (0.4-5.4); Monocytes # (auto) 1.1 10 ^3/uL (0-1.3); White Blood Cell 8.4 10^3/uL (4.4-10.8)
[2021-11-13 07:19] LABS: Basophils # (auto) 0 10 ^3/uL (0-0.2); Basophils % (auto) 0.6 % (0.0-2.0); Lymphocytes % (auto) 8.7 % (10.0-50.0); Mean Corpuscular Hemoglobin 28.6 pg (28.0-32.0); Mean Corpuscular Hgb Conc. 33.6 g/dL (32.0-36.0); Monocytes % (auto) 13.6 % (0.0-12.0); Neutrophils # (auto) 6.3 10 ^3/uL (1.6-8.6); Neutrophils % (auto) 75.1 % (37.0-80.0); Nucleated Red Blood Cells % 0.2 %; Red Blood Cells 2.78 10^6/uL (4.5-5.90); Red Cell Distribution Width 18.7 % (11.8-14.3)
[2021-11-13 08:00] LABS: Calcium 8.1 mg/dL (8.5-10.1); Magnesium 2.3 mg/dL (1.6-2.6); Potassium 4.2 mmol/L (3.5-5.1)
[2021-11-13 08:03] LABS: BUN/Creatinine Ratio 20.5; Bilirubin, Total 0.5 mg/dL (0.2-1.0); Phosphorus 2.7 mg/dL (2.5-4.90); Total Protein 5.9 g/dL (6.4-8.2)
[2021-11-13 09:00] VITALS: BP 109/78
[2021-11-13] MEDS: levoFLOXacin 750MG 150 ML IV SCH (09:38)
[2021-11-13] MEDS: ENOXAPARIN SOD 100 MG/1 ML SYRINGE SC SCH (09:38)
[2021-11-13] MEDS: SODIUM FERR GLUC 62.5MG/5ML 125 MG in SODIUM CHL 0.9% 100 ML IV SCH (12:00)
[2021-11-13 14:00] VITALS: BP 122/80
[2021-11-13 15:09] LABS: Hemoglobin 8.1 g/dL (13.5-17.5)
[2021-11-13 15:11] LABS: Hematocrit 24.3 % (41.0-53.0)
[2021-11-13 17:00] VITALS: BP 130/91
[2021-11-13] MEDS ORDERED: TPN PER PHARMACY IV NR ×9 (20:00)
[2021-11-13 22:00] VITALS: BP 124/91
[2021-11-14] MEDS: ACCU-CHEK COMFORT CURVE STRIP VI SCH ×5 (00:08→23:53)
[2021-11-14] MEDS: InsuLIN REG 1unit/0.01ml Soln (100units/ml) SC SCH ×5 (00:09→23:53)
[2021-11-14] MEDS: PANTOPRAZOLE 40 MG/10 ML VIAL INJ IV SCH ×3 (00:10→22:09)
[2021-11-14] MEDS: metroNIDAZOLE 500MG/100ML 100 ML IV SCH ×2 (00:10→06:05)
[2021-11-14] MEDS: ENOXAPARIN SOD 100 MG/1 ML SYRINGE SC SCH ×3 (00:12→22:09)
[2021-11-14 05:00] VITALS: BP 111/72
[2021-11-14 06:32] LABS: Calcium 7.9 mg/dL (8.5-10.1); Potassium 3.9 mmol/L (3.5-5.1)
[2021-11-14 06:36] LABS: BUN/Creatinine Ratio 18.4; Magnesium 2.1 mg/dL (1.6-2.6)
[2021-11-14 06:38] LABS: Bilirubin, Total 0.5 mg/dL (0.2-1.0); Phosphorus 3.5 mg/dL (2.5-4.90); Total Protein 5.8 g/dL (6.4-8.2)
[2021-11-14 08:00] VITALS: BP 116/74
[2021-11-14] MEDS: levoFLOXacin 750MG 150 ML IV SCH (10:28)
[2021-11-14] MEDS ORDERED: FUROSEMIDE 20 MG/2 ML VIAL IV ONE (10:45)
[2021-11-14 12:00] VITALS: BP 112/70
[2021-11-14] MEDS: SODIUM FERR GLUC 62.5MG/5ML 125 MG in SODIUM CHL 0.9% 100 ML IV SCH (12:00)
[2021-11-14] MEDS ORDERED: GASTROGRAFIN 120 ML SOL ONE (14:52)
[2021-11-14 16:00] VITALS: BP 111/75
[2021-11-14] MEDS ORDERED: TPN PER PHARMACY IV NR ×8 (20:00)
[2021-11-14 22:00] VITALS: BP 105/75
[2021-11-15 05:00] VITALS: BP 103/64
[2021-11-15 05:39] LABS: Basophils # (auto) 0.1 10 ^3/uL (0-0.2); Basophils % (auto) 0.8 % (0.0-2.0); Eosinophils # (auto) 0.2 10 ^3/uL (0-0.8); Eosinophils % (auto) 2.6 % (0.0-7.0); Hematocrit 24.9 % (41.0-53.0); Hemoglobin 8.2 g/dL (13.5-17.5); Lymphocytes # (auto) 1.1 10 ^3/uL (0.4-5.4); Mean Corpuscular Hemoglobin 28.5 pg (28.0-32.0); Mean Corpuscular Hgb Conc. 33.1 g/dL (32.0-36.0); Mean Corpuscular Volume 86.2 fL (80.0-100.0); Monocytes % (auto) 11.4 % (0.0-12.0); Neutrophils # (auto) 6.2 10 ^3/uL (1.6-8.6); Neutrophils % (auto) 72.2 % (37.0-80.0); Red Blood Cells 2.88 10^6/uL (4.5-5.90); White Blood Cell 8.6 10^3/uL (4.4-10.8)
[2021-11-15 05:54] LABS: Potassium 3.8 mmol/L (3.5-5.1)
[2021-11-15] MEDS: InsuLIN REG 1unit/0.01ml Soln (100units/ml) SC SCH ×4 (06:00→23:52)
[2021-11-15 06:03] LABS: Albumin 2.2 g/dL (3.4-5.0); BUN/Creatinine Ratio 22.6; Bilirubin, Total 0.4 mg/dL (0.2-1.0); Calcium 8.3 mg/dL (8.5-10.1); Magnesium 2.2 mg/dL (1.6-2.6); Phosphorus 3.6 mg/dL (2.5-4.90); Total Protein 6.1 g/dL (6.4-8.2)
[2021-11-15] MEDS: ACCU-CHEK COMFORT CURVE STRIP VI SCH ×4 (06:03→23:50)
[2021-11-15 09:00] VITALS: BP 109/66
[2021-11-15] MEDS: FUROSEMIDE 20 MG/2 ML VIAL IV SCH (10:22)
[2021-11-15] MEDS: ENOXAPARIN SOD 100 MG/1 ML SYRINGE SC SCH ×2 (10:22→21:56)
[2021-11-15] MEDS: PANTOPRAZOLE 40 MG/10 ML VIAL INJ IV SCH ×2 (10:22→21:56)
[2021-11-15] MEDS: levoFLOXacin 750MG 150 ML IV SCH (10:25)
[2021-11-15 13:00] VITALS: BP 114/64
[2021-11-15] MEDS: SODIUM FERR GLUC 62.5MG/5ML 125 MG in SODIUM CHL 0.9% 100 ML IV SCH (14:00)
[2021-11-15 17:00] VITALS: BP 111/67
[2021-11-15] MEDS ORDERED: TPN PER PHARMACY IV NR ×9 (20:00)
[2021-11-15 22:00] VITALS: BP 108/74
[2021-11-16] VITALS (7 sets, daily range): BP systolic 100–111; BP diastolic 62–73
[2021-11-16] MEDS: InsuLIN REG 1unit/0.01ml Soln (100units/ml) SC SCH ×3 (05:58→18:00)
[2021-11-16] MEDS: ACCU-CHEK COMFORT CURVE STRIP VI SCH ×3 (05:58→18:10)
[2021-11-16 06:06] LABS: Basophils # (auto) 0.1 10 ^3/uL (0-0.2); Eosinophils # (auto) 0.2 10 ^3/uL (0-0.8); Hemoglobin 8.1 g/dL (13.5-17.5); Lymphocytes # (auto) 1.1 10 ^3/uL (0.4-5.4); Monocytes # (auto) 0.7 10 ^3/uL (0-1.3); Nucleated Red Blood Cells % 0.1 %; White Blood Cell 7.5 10^3/uL (4.4-10.8)
[2021-11-16 06:09] LABS: Basophils % (auto) 0.8 % (0.0-2.0); Eosinophils % (auto) 2.7 % (0.0-7.0); Hematocrit 24.2 % (41.0-53.0); Lymphocytes % (auto) 14.7 % (10.0-50.0); Mean Corpuscular Hgb Conc. 33.3 g/dL (32.0-36.0); Mean Corpuscular Volume 87.2 fL (80.0-100.0); Monocytes % (auto) 9.7 % (0.0-12.0); Neutrophils # (auto) 5.4 10 ^3/uL (1.6-8.6); Neutrophils % (auto) 72.1 % (37.0-80.0); Red Blood Cells 2.78 10^6/uL (4.5-5.90); Red Cell Distribution Width 19.6 % (11.8-14.3)
[2021-11-16 06:23] LABS: Calcium 8.2 mg/dL (8.5-10.1); Potassium 3.6 mmol/L (3.5-5.1)
[2021-11-16 06:29] LABS: Albumin 2.3 g/dL (3.4-5.0); BUN/Creatinine Ratio 27.8; Bilirubin, Total 0.3 mg/dL (0.2-1.0); Magnesium 2.6 mg/dL (1.6-2.6); Phosphorus 3.5 mg/dL (2.5-4.90); Pre Albumin 18.5 mg/dL (20.0-40.0); Total Protein 6.2 g/dL (6.4-8.2)
[2021-11-16] MEDS: FUROSEMIDE 20 MG/2 ML VIAL IV SCH (11:03)
[2021-11-16] MEDS: ENOXAPARIN SOD 100 MG/1 ML SYRINGE SC SCH ×2 (11:04→20:51)
[2021-11-16] MEDS: PANTOPRAZOLE 40 MG/10 ML VIAL INJ IV SCH ×2 (11:04→20:51)
[2021-11-16] MEDS: levoFLOXacin 750MG 150 ML IV SCH (11:17)
[2021-11-16] MEDS: SODIUM FERR GLUC 62.5MG/5ML 125 MG in SODIUM CHL 0.9% 100 ML IV SCH (12:30)
[2021-11-16] MEDS ORDERED: TPN PER PHARMACY IV NR ×9 (20:00)
[2021-11-17] MEDS: ACCU-CHEK COMFORT CURVE STRIP VI SCH ×2 (00:08→06:19)
[2021-11-17 05:00] VITALS: BP 105/63
[2021-11-17] MEDS: InsuLIN REG 1unit/0.01ml Soln (100units/ml) SC SCH ×2 (06:00)
[2021-11-17 08:00] VITALS: BP 114/76
[2021-11-17 09:01] VITALS: BP 114/76
[2021-11-17] MEDS ORDERED: HYDROcodone-ACET 5/325MG TAB PO PRN (09:15)
[2021-11-17 09:16] LABS: Alanine Aminotransferase 28 U/L (16-61); Albumin 2.9 g/dL (3.4-5.0); Anion Gap 11 (5-15); Aspartate Aminotransferase 47 U/L (15-37); BUN/Creatinine Ratio 25.3; Blood Urea Nitrogen 22 mg/dL (7-18); Calcium 8.6 mg/dL (8.5-10.1); Carbon Dioxide 21 mmol/L (21-32); Chloride 104 mmol/L (98-107); GFR African American 119 mL/min; GFR Non-African American 98 mL/min; Glucose 95 mg/dL (74-106); Magnesium 2.5 mg/dL (1.6-2.6); Potassium 4.3 mmol/L (3.5-5.1); Sodium 136 mmol/L (136-145)
[2021-11-17 09:19] LABS: Alkaline Phosphatase 177 U/L (45-117); Bilirubin, Total 0.5 mg/dL (0.2-1.0); Phosphorus 3.8 mg/dL (2.5-4.90); Total Protein 7.3 g/dL (6.4-8.2)
[2021-11-17 09:27] LABS: Basophils # (auto) 0.1 10 ^3/uL (0-0.2); Eosinophils # (auto) 0.2 10 ^3/uL (0-0.8); Eosinophils % (auto) 3.2 % (0.0-7.0); Hematocrit 30.2 % (41.0-53.0); Hemoglobin 9.9 g/dL (13.5-17.5); Lymphocytes % (auto) 13.2 % (10.0-50.0); Mean Corpuscular Hemoglobin 28.9 pg (28.0-32.0); Mean Corpuscular Hgb Conc. 32.9 g/dL (32.0-36.0); Mean Corpuscular Volume 87.9 fL (80.0-100.0); Monocytes # (auto) 0.6 10 ^3/uL (0-1.3); Monocytes % (auto) 8.6 % (0.0-12.0); Neutrophils # (auto) 5.6 10 ^3/uL (1.6-8.6); Nucleated Red Blood Cells % 0.2 %; Red Blood Cells 3.44 10^6/uL (4.5-5.90); Red Cell Distribution Width 21.4 % (11.8-14.3); White Blood Cell 7.5 10^3/uL (4.4-10.8)
[2021-11-17] MEDS: levoFLOXacin 750MG 150 ML IV SCH (10:00)
[2021-11-17] MEDS: APIXABAN 5 MG TAB PO SCH ×2 (11:42→21:08)
[2021-11-17] MEDS: PANTOPRAZOLE 40 MG TAB PO SCH (11:42)
[2021-11-17] MEDS: Ensure HIGH Protein Chocolate 8oz Bottle PO SCH ×2 (12:00→18:24)
[2021-11-17 13:00] VITALS: BP 104/66
[2021-11-17 20:00] VITALS: BP 114/76
[2021-11-17] MEDS ORDERED: TPN PER PHARMACY IV NR ×10 (20:00)
[2021-11-17 23:28] VITALS: BP 98/65
[2021-11-18 05:23] VITALS: BP 99/68
[2021-11-18 08:00] VITALS: BP 105/70
[2021-11-18] MEDS: Ensure HIGH Protein Chocolate 8oz Bottle PO SCH ×3 (08:00→17:30)
[2021-11-18 09:00] VITALS: BP 100/70
[2021-11-18] MEDS ORDERED: DOCU-94 PO (09:03)
[2021-11-18] MEDS ORDERED: APIX5TAB PO (09:03)
[2021-11-18] MEDS ORDERED: HYDR1TAB97 PO (09:03)
[2021-11-18] MEDS ORDERED: PANT40T PO (09:03)
[2021-11-18 09:33] LABS: Basophils # (auto) 0.1 10 ^3/uL (0-0.2); Eosinophils # (auto) 0.2 10 ^3/uL (0-0.8); Hemoglobin 9.5 g/dL (13.5-17.5); Nucleated Red Blood Cells % 0.1 %
[2021-11-18 09:34] LABS: Basophils % (auto) 0.7 % (0.0-2.0); Hematocrit 29.7 % (41.0-53.0); Lymphocytes % (auto) 14.3 % (10.0-50.0); Mean Corpuscular Hemoglobin 28.5 pg (28.0-32.0); Mean Corpuscular Hgb Conc. 32.2 g/dL (32.0-36.0); Mean Corpuscular Volume 88.7 fL (80.0-100.0); Monocytes # (auto) 0.6 10 ^3/uL (0-1.3); Monocytes % (auto) 9.1 % (0.0-12.0); Neutrophils % (auto) 72.9 % (37.0-80.0); Red Blood Cells 3.35 10^6/uL (4.5-5.90); Red Cell Distribution Width 21.6 % (11.8-14.3); White Blood Cell 6.9 10^3/uL (4.4-10.8)
[2021-11-18 10:27] LABS: Albumin 2.8 g/dL (3.4-5.0); BUN/Creatinine Ratio 21.8; Calcium 8.7 mg/dL (8.5-10.1); Magnesium 2.2 mg/dL (1.6-2.6); Potassium 4.1 mmol/L (3.5-5.1)
[2021-11-18 10:29] LABS: Bilirubin, Total 0.4 mg/dL (0.2-1.0); Phosphorus 3.3 mg/dL (2.5-4.90); Total Protein 7.4 g/dL (6.4-8.2)
[2021-11-18] MEDS: PANTOPRAZOLE 40 MG TAB PO SCH (11:05)
[2021-11-18] MEDS: levoFLOXacin 750MG 150 ML IV SCH (11:05)
[2021-11-18] MEDS: APIXABAN 5 MG TAB PO SCH (11:05)
[2021-11-18 13:20] VITALS: BP 129/75
[2021-11-18 16:56] VITALS: BP 116/81
[2021-11-24] MEDS ORDERED: APIXABAN 5 MG TAB PO SCH (10:00)
== END 2021-11-18 17:15 | disposition home or self-care (01) | DRG 710 ==
LOC: EDBD 05:00 → ER 05:00 → TELE 07:57 → ICU WEST 16:02 → DOU IN ICU 11-08 19:18 → TELE-EAST 11-12 14:15 → EAST 11-15 20:38
PROVIDERS: ADMIT Registered Nurse; ATTEND Internal Medicine
PROC: 0D1 Gastrointestinal System, Bypass (ICD-10-PCS; 2021-11-05)
PROC: 0DB80ZZ Excision of Small Intestine, Open Approach (ICD-10-PCS; 2021-11-05)
PROC: 5A1945Z Respiratory Ventilation, 24-96 Consecutive Hours (ICD-10-PCS; 2021-11-05)
PROC: 30233N1 Transfusion of Nonautologous Red Blood Cells into Peripheral Vein, Percutaneous Approach (ICD-10-PCS; 2021-11-05)
PROC: 0BH17EZ Insertion of Endotracheal Airway into Trachea, Via Natural or Artificial Opening (ICD-10-PCS; 2021-11-05)
PROC: 02HV33Z Insertion of Infusion Device into Superior Vena Cava, Percutaneous Approach (ICD-10-PCS; principal; 2021-11-06)
DX: A41.9 Sepsis, unspecified organism (principal); R65.21 Severe sepsis with septic shock; J96.01 Acute respiratory failure with hypoxia; K63.1 Perforation of intestine (nontraumatic); K65.0 Generalized (acute) peritonitis; K65.1 Peritoneal abscess; N17.9 Acute kidney failure, unspecified; D63.8 Anemia in other chronic diseases classified elsewhere; E88.09 Other disorders of plasma-protein metabolism, not elsewhere classified; E43 Unspecified severe protein-calorie malnutrition; J18.9 Pneumonia, unspecified organism; N18.1 Chronic kidney disease, stage 1; Z93.3 Colostomy status; F41.9 Anxiety disorder, unspecified; I82.403 Acute embolism and thrombosis of unspecified deep veins of lower extremity, bilateral; J98.11 Atelectasis; J90 Pleural effusion, not elsewhere classified; K40.30 Unilateral inguinal hernia, with obstruction, without gangrene, not specified as recurrent
CPT/HCPCS: 36415; 36600; 71045; 71275; 74177; 74248; 80053; 82040; 82805; 82962; 83540; 83550; 83605; 83690; 83735; 83880; 84100; 84478; 84484; 85014; 85018; 85025; 85610; 85730; 86850; 86900; 86901; 86920; 87040; 87070; 87075; 87077; 87081; 87186; 87205; 93005; 93970; 94002; 94003; 96361; 96365; 96367; 96375; 97110; 97116; 97163; 97530; 99291; C9113; G0378; J0330; J0690; J0696; J1815; J1956; J2250; J2405; J2704; J3490; J7060; J7131; P9047

== ENCOUNTER 2022-07-30 16:36 | Emergency (ER) | payer MEDICAID, OTHER ==
[~2022-07-30] VITALS: Ht 170.2 cm; Wt 91.5 kg
[~2022-07-30 16:36] MED LIST changes: +APIX5TAB PO; +DOCU-94 PO; +HYDR1TAB97 PO; +PANT40T PO
[2022-07-30 19:05] VITALS: BP 118/75
[2022-07-30] MEDS ORDERED: IBUP800T27 PO (19:22)
[2022-07-30] MEDS ORDERED: CEPH-510 PO (19:22)
== END 2022-07-30 21:32 | disposition home or self-care (01) ==
LOC: ER 16:36
DX: S61.215A Laceration without foreign body of left ring finger without damage to nail, initial encounter (principal); S61.217A Laceration without foreign body of left little finger without damage to nail, initial encounter; W26.0XXA Contact with knife, initial encounter; Y93.89 Activity, other specified; Y92.89 Other specified places as the place of occurrence of the external cause; Y99.8 Other external cause status
CPT/HCPCS: 12002

== ENCOUNTER 2022-12-04 08:58 | Emergency (ER) | payer MEDICAID ==
[~2022-12-04] VITALS: Ht 170.2 cm; Wt 91.2 kg
[~2022-12-04 08:58] MED LIST changes: +CEPH-510 PO; +IBUP800T27 PO
[2022-12-04 09:04] VITALS: BP 132/92
[2022-12-04] MEDS ORDERED: METH4PAK PO (09:42)
== END 2022-12-04 09:51 | disposition home or self-care (01) ==
LOC: ER 08:58
DX: G51.0 Bell's palsy (principal); E78.5 Hyperlipidemia, unspecified; I10 Essential (primary) hypertension; Z87.891 Personal history of nicotine dependence
CPT/HCPCS: 70450

== ENCOUNTER → 2024-09-17 | Outpatient (CLI) | payer MEDICAID ==
[~2024-09-17] MED LIST changes: +IBUP-1456 PO; -IBUP800T27 PO; +METH4PAK PO
[2024-09-17 12:20] LABS: Basophils # (auto) 0.1 10 ^3/uL (0-0.2); Basophils % (auto) 0.8 % (0.0-2.0); Eosinophils # (auto) 0.3 10 ^3/uL (0-0.8); Eosinophils % (auto) 4.5 % (0.0-7.0); Hematocrit 42.7 % (41.0-53.0); Hemoglobin 14.3 g/dL (13.5-17.5); Lymphocytes # (auto) 1.6 10 ^3/uL (0.4-5.4); Lymphocytes % (auto) 25.2 % (10.0-50.0); Mean Corpuscular Hemoglobin 31.4 pg (28.0-32.0); Mean Corpuscular Hgb Conc. 33.4 g/dL (32.0-36.0); Mean Corpuscular Volume 93.9 fL (80.0-100.0); Monocytes # (auto) 0.6 10 ^3/uL (0-1.3); Monocytes % (auto) 8.9 % (0.0-12.0); Neutrophils # (auto) 3.8 10 ^3/uL (1.6-8.6); Neutrophils % (auto) 60.6 % (37.0-80.0); Nucleated Red Blood Cells % 0.1 %; Platelet Count (auto) 178 10^3/uL (140-450); Red Blood Cells 4.55 10^6/uL (4.5-5.90); Red Cell Distribution Width 14.6 % (11.8-14.3); White Blood Cell 6.2 10^3/uL (4.4-10.8)
[2024-09-17 12:52] LABS: Prostate Specific Antigen 0.38 ng/mL (0.0-4.0)
[2024-09-17 12:54] LABS: Alanine Aminotransferase 27 U/L (7-40); Alkaline Phosphatase 101 U/L (46-116); Anion Gap 9 (5-15); Aspartate Aminotransferase 24 U/L (13-40); BUN/Creatinine Ratio 10.4 (10.0-20.0); Bilirubin, Total 0.7 mg/dL (0.2-1.0); Blood Urea Nitrogen 11 mg/dL (9-23); Calcium 9.9 mg/dL (8.7-10.4); Carbon Dioxide 25 mmol/L (20-31); Chloride 105 mmol/L (98-107); Glucose 92 mg/dL (74-106); HDL Cholesterol 44 mg/dL (40-59); Potassium 3.9 mmol/L (3.5-5.1); Sodium 139 mmol/L (136-145)
[2024-09-17 12:55] LABS: Cholesterol 205 mg/dL (< 200); LDL Cholesterol 116 mg/dL (< 100); Total Protein 7.8 g/dL (5.7-8.2); Triglycerides 193 mg/dL (< 150)
[2024-09-17 12:58] LABS: Ferritin 392.3 ng/mL (22-322)
[2024-09-18 10:15] LABS: Hepatitis B Core Total AB Negative (Negative)
[2024-09-18 11:57] LABS: Hepatitis A Total Antibody Positive (Negative)
[2024-09-18 11:58] LABS: Hepatitis B Surface Antibody Negative (Negative); Hepatitis B Surface Antigen Negative (Negative); Hepatitis C Antibody Negative (Negative)
== END | disposition home or self-care (01) ==
LOC: LAB 11:08
PROVIDERS: ATTEND Licensed Practical Nurse
DX: Z13.6 Encounter for screening for cardiovascular disorders (principal); Z13.1 Encounter for screening for diabetes mellitus; Z13.220 Encounter for screening for lipoid disorders; I10 Essential (primary) hypertension; E55.9 Vitamin D deficiency, unspecified; D64.9 Anemia, unspecified
CPT/HCPCS: 36415; 80053; 80061; 82306; 82607; 82728; 83036; 83540; 83550; 84153; 84443; 85025; 86703; 86704; 86706; 86708; 86803; 87340

== ENCOUNTER → 2024-09-25 | Outpatient (CLI) | payer MEDICAID | END | disposition home or self-care (01) | LOC: LAB 08:51 | PROVIDERS: ATTEND Licensed Practical Nurse | DX: Z13.6 Encounter for screening for cardiovascular disorders (principal); Z13.1 Encounter for screening for diabetes mellitus; Z13.220 Encounter for screening for lipoid disorders; I10 Essential (primary) hypertension; E55.9 Vitamin D deficiency, unspecified; D64.9 Anemia, unspecified | CPT/HCPCS: 82274 ==

== ENCOUNTER → 2025-03-13 | Day surgery (SDC) | payer MEDICAID ==
[2025-03-10 12:41] LABS: Hematocrit 42.4 % (41.0-53.0); Hemoglobin 14.6 g/dL (13.5-17.5); Mean Corpuscular Hemoglobin 32.4 pg (28.0-32.0); Mean Corpuscular Volume 94.1 fL (80.0-100.0); Nucleated Red Blood Cells % 0.1 %
[2025-03-10 12:52] LABS: Urine Protein, UAD Negative (Negative)
[2025-03-10 12:57] LABS: INR 1.0 (0.9-1.15); Partial Thromboplastin Time 26.7 SEC (24.5-34.5); Prothrombin Time 10.6 sec (9.3-11.8)
[2025-03-10 13:22] LABS: BUN/Creatinine Ratio 5.3 (10.0-20.0)
[2025-03-10 13:23] LABS: Total Protein 7.6 g/dL (5.7-8.2)
[2025-03-10 13:24] LABS: Bilirubin, Total 0.6 mg/dL (0.2-1.0)
[2025-03-10 13:25] LABS: Alanine Aminotransferase 38 U/L (7-40); Albumin 5.0 g/dL (3.2-4.8); Alkaline Phosphatase 88 U/L (46-116); Anion Gap 11 (5-15); Blood Urea Nitrogen 7 mg/dL (9-23); Calcium 9.5 mg/dL (8.7-10.4); Carbon Dioxide 21 mmol/L (20-31); Chloride 108 mmol/L (98-107); Glucose 99 mg/dL (74-106); Potassium 4.1 mmol/L (3.5-5.1); Sodium 140 mmol/L (136-145)
[~2025-03-13] VITALS: Ht 170.2 cm; Wt 93.0 kg
[~2025-03-13] MED LIST changes: +KETAMINE 50mg/ML 1ml syringe ONE; +LIDOCAINE 2% (LOCAL ANESTH.) PF 5ml SDV ONE; +MIDAZOLAM HCL 2MG/2ML 2ml VIAL (1mg/ml) ONE; +PROPOFOL 10 MG/ML 20 ML IV ONE
[2025-03-13 11:13] VITALS: PULSE 74; RESP 18; TEMP 97.2; O2SAT 98
[2025-03-13 11:43] VITALS: BP 122/77; PULSE 67; RESP 17; O2SAT 95
--- NOTE | 2025-03-13 11:49 | DVHOP2 ---
Operative Report DATE OF OPERATION: 03/13/25 PROCEDURE: Colonoscopy with hot snare polypectomy. PREOPERATIVE INDICATION: The patient is a 54 -year-old male undergoing colonoscopy for colon cancer screening with stool Hemoccult is positive POSTOPERATIVE DIAGNOSES: 1. 1 cm benign-appearing polyp was seen on a short stalk in the sigmoid colon at 30 cm above the anal verge and removed completely via hot snare polypectomy 2. There were two less than 5 mm benign-appearing diminutive descending colon polyps that were seen and removed by cold snare polypectomy 3. There was a 1-2 mm benign-appearing transverse colon polyp that was seen and removed by cold biopsy forceps 4. Mild sigmoid diverticular disease 5. Trace to 1+ internal hemorrhoids otherwise normal examination up to the cecum and terminal ileum PROCEDURE PERFORMED BY: Helen Morel M.D. SCOPE: Olympus videocolonoscope. ASA CLASS: 2 PREOPERATIVE MEDICATIONS: Anil rivera, Dr. Robb PROCEDURE IN DETAIL: After obtaining an informed consent, the patient was placed on left lateral decubitus position. He was then sedated with the above medications. A rectal examination was performed that was normal. The colonoscope was then passed through the anus into the rectosigmoid and through the descending, transverse, and ascending colon up to the cecum with visualization of the appendiceal orifice, base of the cecum and the ileocecal valve. The colonoscope was then withdrawn. Distal 5 cm of the terminal ileum were normal No masses or colitis were seen. Patient had mild sigmoid diverticular disease In the transverse colon there was a 2 mm polyp that was seen and removed by cold biopsy forceps In the descending colon there were two less than 5 mm benign-appearing polyps, one removed by cold snare polypectomy and the other by biopsy forceps In the sigmoid colon there was a 1 cm polyp on a short stalk that was seen and removed by hot snare polypectomy and the specimens were retrieved Patient had mild sigmoid diverticular disease. On retroflexion 1+ internal hemorrhoids The patient tolerated the procedure well without difficulty. WITHDRAWAL TIME: 8 minutes QUALITY OF THE PREP: [place] Bowel Prep score: 9. COMPLICATIONS : None SPECIMENS: Descending colon polyps x2 Transverse colon tiny polyp x1 Sigmoid polyp x1 DISPOSITION: Stable D/C to home PLAN: 1. Repeat colonoscopy base on biopsy result likely in three years 2. Resume GI soft diet advance as tolerated 3. Resume Eliquis in 48-72 hours 4. Increase fluid and fiber intake 5. Outpatient follow up with me in 4-6 weeks to review results and discuss further management HELEN MOREL MD Mar 13, 2025 11:49
== END | disposition home or self-care (01) ==
LOC: GI 09:10
PROVIDERS: ATTEND Internal Medicine Gastroenterology
DX: R19.5 Other fecal abnormalities (principal); K57.30 Diverticulosis of large intestine without perforation or abscess without bleeding; D12.5 Benign neoplasm of sigmoid colon; D12.3 Benign neoplasm of transverse colon; D12.4 Benign neoplasm of descending colon; K64.0 First degree hemorrhoids; E78.5 Hyperlipidemia, unspecified; F41.9 Anxiety disorder, unspecified; F32.A Depression, unspecified; Z98.890 Other specified postprocedural states
CPT/HCPCS: 36415; 45380; 45385; 80053; 81001; 85025; 85610; 85730; 88305; J2003; J2250; J2704; J7030

== ENCOUNTER 2025-03-17 10:24 | Outpatient (CLI) | payer MEDICAID ==
[~2025-03-17 10:24] MED LIST changes: -KETAMINE 50mg/ML 1ml syringe ONE; -LIDOCAINE 2% (LOCAL ANESTH.) PF 5ml SDV ONE; -MIDAZOLAM HCL 2MG/2ML 2ml VIAL (1mg/ml) ONE; -PROPOFOL 10 MG/ML 20 ML IV ONE
[2025-03-17 10:43] LABS: Hematocrit 41.9 % (41.0-53.0); Hemoglobin 14.3 g/dL (13.5-17.5); Mean Corpuscular Hemoglobin 32.2 pg (28.0-32.0); Mean Corpuscular Volume 94.0 fL (80.0-100.0); Nucleated Red Blood Cells % 0.0 %
[2025-03-17 11:32] LABS: Alanine Aminotransferase 26 U/L (7-40); Alkaline Phosphatase 81 U/L (46-116); Anion Gap 7 (5-15); BUN/Creatinine Ratio 9.2 (10.0-20.0); Blood Urea Nitrogen 11 mg/dL (9-23); Calcium 9.1 mg/dL (8.7-10.4); Carbon Dioxide 21 mmol/L (20-31); Cholesterol 133 mg/dL (< 200); Glucose 94 mg/dL (74-106); Potassium 3.9 mmol/L (3.5-5.1); Sodium 140 mmol/L (136-145); Total Protein 7.2 g/dL (5.7-8.2)
[2025-03-17 11:33] LABS: Albumin 4.8 g/dL (3.2-4.8); Bilirubin, Total 0.7 mg/dL (0.2-1.0); Chloride 112 mmol/L (98-107); HDL Cholesterol 36 mg/dL (40-59); Triglycerides 192 mg/dL (< 150)
== END 2025-03-17 17:00 | disposition home or self-care (01) ==
LOC: LAB 10:24
PROVIDERS: ATTEND Licensed Practical Nurse
DX: I10 Essential (primary) hypertension (principal); E78.2 Mixed hyperlipidemia; F17.200 Nicotine dependence, unspecified, uncomplicated; Z13.1 Encounter for screening for diabetes mellitus
CPT/HCPCS: 36415; 80053; 80061; 82043; 83036; 85025

== ENCOUNTER → 2025-06-15 | Outpatient (CLI) | payer MEDICAID ==
[2025-06-15 08:10] LABS: Alanine Aminotransferase 37 U/L (7-40); Albumin 4.7 g/dL (3.2-4.8); Alkaline Phosphatase 83 U/L (46-116); Anion Gap 10 (5-15); BUN/Creatinine Ratio 18.5 (10.0-20.0); Calcium 9.8 mg/dL (8.7-10.4); Carbon Dioxide 24 mmol/L (20-31); Chloride 106 mmol/L (98-107); Glucose 100 mg/dL (74-106); Potassium 4.6 mmol/L (3.5-5.1); Sodium 140 mmol/L (136-145); Total Protein 7.8 g/dL (5.7-8.2)
[2025-06-15 08:11] LABS: Bilirubin, Total 0.4 mg/dL (0.2-1.0); Cholesterol 168 mg/dL (< 200); HDL Cholesterol 48 mg/dL (40-59)
[2025-06-15 08:14] LABS: Blood Urea Nitrogen 24 mg/dL (9-23); Triglycerides 168 mg/dL (< 150)
[2025-06-15 11:15] LABS: Hepatitis A Total Antibody Positive (Negative); Hepatitis B Surface Antigen Negative (Negative); Hepatitis C Antibody Negative (Negative)
== END | disposition home or self-care (01) ==
LOC: LAB 07:31
PROVIDERS: ATTEND Licensed Practical Nurse
DX: I10 Essential (primary) hypertension (principal); E78.5 Hyperlipidemia, unspecified
CPT/HCPCS: 36415; 80053; 80061; 86704; 86706; 86708; 86803; 87340